=== PATIENT | female | born 1960 | race Hispanic/Latino ===

== ENCOUNTER 2017-06-06 03:36 | Emergency (ER) | payer OTHER ==
[2017-06-06] MEDS ORDERED: KETOROLAC TROMETHAMINE 30MG/ML ONE (05:15)
[2017-06-06] MEDS ORDERED: SODIUM CHLORIDE 0.9% 1000ML 1,000 ML IV ONE (05:15)
[2017-06-06] MEDS ORDERED: OSELTAMIVIR PHOSPHATE 75 MG CAP ONE (05:16)
== END 2017-06-06 07:02 | disposition home or self-care (01) ==
LOC: EDH 03:36
DX: J10.1 Influenza due to other identified influenza virus with other respiratory manifestations (principal); Z98.890 Other specified postprocedural states
CPT/HCPCS: 87804 ×2; 96361; 96374; 99284; J1885; J7030